=== PATIENT | female | born 1955 | race Caucasian/White ===

== ENCOUNTER → 2020-08-02 10:54 | Outpatient (CLI) | payer OTHER, SELFPAY ==
--- NOTE | ~2020-08-02 | XR_ITS ---
EXAMINATION: XR hip LT min 2V DATE: 08/02/2020 11:27 INDICATION: Left hip pain. TECHNIQUE: 2 views of left hip were obtained. COMPARISON: Lumbar spine radiographs 08/02/2020 FINDINGS: Bone alignment is normal. No fracture. There is diffuse sclerosis of left innominate bone w ith cortical thickening. Left hip joint space is normal. IMPRESSION: 1. Diffuse sclerosis and cortical thickening of left innominate bone, likely Paget disease. Reviewed, dictated and finalized at location A. ES ATTENDANT IMPRESSION: 1. Diffuse sclerosis and cortical thickening of left innominate bone, likely Pa get disease.
--- NOTE | ~2020-08-02 | XR_ITS ---
XR lumbar spine 2-3V DATE: 08/02/2020 11:27 INDICATION: Back pain TECHNIQUE: AP, lateral, coned lateral lumbosacral views COMPARISON: None FINDINGS: There is diffuse osteopenia. There are 6 functional lumbar vertebrae, including probable S1 transitional vertebra. Mild anterior wedge compression fracture deformity of T12. No other fracture is evident. No bone destruction is evident. The lumbar pedicles are intact. There is moderate degenerative disc disease at L5-S1 and mild degenerative disease at the remaining l umbar interspaces. The sacroiliac joints are intact. There is asymmetric cortical thickening and patchy increased density of the left ilium which suggests Paget's disease. Pelvis radiograph is recommended for more definitive evaluation. IMPRESSION: Diffuse osteopenia Transitional first sacral vertebra Moderate degenerative disc disease at L5-S1, mild degenerative change at the remaining lumbar intersp aces Mild likely chronic anterior wedge compression fracture of T12 Suspected Paget's disease of left ilium; pelvis radiograph is recommended Reviewed, dictated and finalized at location A. E LIAISON IMPRESSION: Diffuse osteopenia Transitional first sacral vertebra Moderate degenerative disc disease at L5-S1, mild degenerative change at the re maining lumbar interspaces Mild likely chronic anterior wedge compression fracture of T12 Suspected Paget's disease of left ilium; pelvis radiograph is recommended
== END ==
PROVIDERS: Visit Provider Physician Assistant
DX: M54.9 Dorsalgia, unspecified (principal); M25.559 Pain in unspecified hip; M89.9 Disorder of bone, unspecified; M85.88 Other specified disorders of bone density and structure, other site; Q76.49 Other congenital malformations of spine, not associated with scoliosis; M51.37 Other intervertebral disc degeneration, lumbosacral region; M48.54XA Collapsed vertebra, not elsewhere classified, thoracic region, initial encounter for fracture
CPT/HCPCS: 72100; 73502

== ENCOUNTER → 2020-09-12 15:56 | Outpatient (CLI) | payer OTHER, SELFPAY ==
--- NOTE | ~2020-09-12 | XR_ITS ---
EXAMINATION: XR pelvis 1-2V INDICATION: Abnormal findings on diagnostic imaging TECHNIQUE: AP view the pelvis is obtained. COMPARISON: 08/02/2020 FINDINGS: Again noted is diffuse sclerosis and cortical thickening of the left hemipelvis without sig nificant change. Bone alignment is normal. There is no fracture. Phleboliths are noted in the pelvis. IMPRESSION: 1. Findings in the left pelvis suggestive of Paget's disease. Reviewed, dictated and finalized at location A.
== END ==
PROVIDERS: PCP Family Medicine; Visit Provider Physician Assistant
DX: R93.7 Abnormal findings on diagnostic imaging of other parts of musculoskeletal system (principal)
CPT/HCPCS: 72170

== ENCOUNTER 2020-09-20 14:56 | Outpatient (CLI) | payer OTHER, SELFPAY ==
--- NOTE | ~2020-09-20 | DEXA_ITS ---
Bone Density Report Name: Lula Avila Age: 64 Sex: Female Ethnicity: White Date of : 1955 Indication: osteopenia; parental hip fracture; height loss; prior fracture; hysterectomy; Referring Provider: Kristofer Colon Study: Bone densitometry was performed. Exam Date: September 20, 2020 Accession number: [id number] Bone Density: Region BMD T-score Z-score Classification AP Spine (L1-L4) 0.930 -1.1 0.8 Osteopenia Femoral Neck (Left) 0.672 -1.6 0.0 Osteopenia Total Hip (Left) 0.941 0.0 1.3 Normal Total Hip Bilateral Avg 0.938 -0.1 1.3 Normal Femoral Neck (Right) 0.687 -1.5 0.1 Osteopenia Total Hip (Right) 0.934 -0.1 1.3 Normal World Health Organization criteria for BMD impression classify patients as: Normal (T-score at or above -1.0), Osteopenia (T-score between -1.0 and -2.5), or Osteoporosis (T-score at or below -2.5). 10-year Fracture Risk(1): Major Osteoporotic Fracture 24% Hip Fracture 2.2% Reported Risk Factors: [place] (), Neck BMD=0.672, BMI=41.9, previous fracture, parental fracture (1) FRAX(R) Version 3.08. Fracture probability calculated for an untreated patient. Fracture probability may be lower if the patient has received treatment. Previous Exams: Region Exam Age BMD T-score BMD Change BMD Change Date g/cm2 vs Baseline vs Previous AP Spine(L1-L4) 09/20/2020 64 0.930 -1.1 0.007(0.7%)# 0.007(0.7%)# 12/19/2005 50 0.924 -1.1 Total Hip(Left) 09/20/2020 64 0.941 0.0 -0.014(-1.5%)# -0.014(-1.5%)# 12/19/2005 50 0.955 0.1 Total Hip(Right) 09/20/2020 64 0.934 -0.1 -0.097(-9.4%)# -0.097(-9.4%)# 12/19/2005 50 1.031 0.7 *Denotes significance at 95% confidence level, LSC for AP Spine = 0.022 g/cm2, LSC for Total Hip = 0.027 g/cm2 Clinical Information Provided by Patient: Has had a low trauma fracture Parent has had a hip fracture Has used the following medications: Vitamin D, Calcium Has the following medical conditions: Hysterectomy Patient maximum height was 61.5 Drinks caffeinated beverages Onset of menses at age 12 Number of children 3 Impression: The patient has low bone mass, based on the Left Femoral Neck T-score. The patient has an estimated ten-year risk of hip fracture of 2.2% and an estimated ten-year risk of major fracture of 24%, based on the WHO FRAX algorithm. The patient has risk factors, including: parental hip fracture, previous fracture. No significant bone loss was observed
--- NOTE | ~2020-09-20 | MM_ITS ---
EXAMINATION: MM screening [facility] BI w kristine HISTORY: Screening TECHNIQUE: Craniocaudal and mediolateral oblique 3-D tomosynthesis images were obtained and synthetic 2-D images were generated. CAD analysis was submitted and interpreted. COMPARISON: Comparison to multiple prior studies sequentially, with oldest reviewed study dated 12/2010. BREAST PARENCHYMAL COMPOSITION: There are scattered areas of fibroglandular density. FINDINGS: There is no evidence of suspicious mass, calcification, or architectural distortion to sugg est malignancy in either breast. There has been no suspicious interval change. IMPRESSION: 1. No mammographic evidence of malignancy. 2. Recommend routine screening mammography in one year. BI-RADS Category 1: Negative Reviewed, dictated and finalized at location A.
== END 2020-09-20 14:57 | disposition home or self-care (01) ==
LOC: ANHIMG 14:58
PROVIDERS: PCP Family Medicine; Visit Provider Physician Assistant
DX: Z12.31 Encounter for screening mammogram for malignant neoplasm of breast (principal); Z78.0 Asymptomatic menopausal state; Z85.89 Personal history of malignant neoplasm of other organs and systems
CPT/HCPCS: 77063; 77067; 77080

== ENCOUNTER 2020-12-26 15:00 | Outpatient (RCR) | payer OTHER, SELFPAY ==
[2020-12-26 15:02] VITALS: BMI 41.7
[2020-12-26 15:08] VITALS: BMI 41.7
== END 2021-03-10 11:48 | disposition home or self-care (01) ==
LOC: ANHDMC 15:00
PROVIDERS: PCP Family Medicine; Visit Provider Physician Assistant
DX: E11.9 Type 2 diabetes mellitus without complications (principal); E66.01 Morbid (severe) obesity due to excess calories; Z71.89 Other specified counseling; Z71.3 Dietary counseling and surveillance
CPT/HCPCS: 97802; G0108

== ENCOUNTER 2023-02-18 15:30 | Outpatient (RCR) | payer OTHER, SELFPAY ==
--- NOTE | 2023-01-22 17:24 | OPREHPOC ---
Outpatient Therapy Plan of Care This is a Multidisciplinary Plan of Care that may contain components documented by all disciplines (PT, OT, and ST.) PT Problem 1 PT Problem #1 Knowledge Deficit PT Goal 1 Goal Pt to be IND with issued HEP Target Visit 8 PT Goal 1 Goal Pt to report pain no greater than 3/10 in the last week Target Visit 8 PT Goal 2 Goal Pt to report 75% improvement in overall symptoms. Target Visit 8 PT Problem 3 PT Problem #3 Impaired Sensation PT Goal 1 Goal Pt to report a 50% decrease in facial numbness Target Visit 8 PT Goal 2 Goal Pt to decline radiating symptoms down her LEs in the last week Target Visit 8 PT Problem 4 PT Problem #4 Impaired Functional Mobil PT Goal 1 Goal Pt to demonstrate a functional lift and carry with 10lb box Target Visit 8
--- NOTE | 2023-01-22 17:24 | PTOPEVAL1 ---
Assessment and note entered by Rex Kumar, PT, DPT Evaluation Information Assessment Status Evaluation Diagnosis low back pain Onset chronic Subjective Information Pt reports recurrent face and L hand numbness that is currently her biggest complaint. Pt reports a long history of low back pain that comes and goes. She reports current pain down the L thigh, and in the R side of her low back. Pt reports pain while standing long enough to cook a meal but her back pain hurts afterwards. Reported Pain Level Pain Score 3: Self Report Assessment PT Clinical Summary Lula presents to therapy today for her initial evaluation with a diagnosis of back pain. Today she demonstrates a mild decrease in radha hip strength, poor posture including a forward head and increased anterior pelvic tilt, and decreased core strength. In supine she also demonstrate BLE that are asymmetric in their alignment. Skilled therapy services are indicated to manage pain, improve alignment and postural awareness, and to improve functional mobility. Plan of Care Interventions Electrical Stimulation,Gait Training,Hot Pack/Cold Pack,Manual Therapy,Neuro Re-education,Patient/ Caregiver Educati,Therapeutic Activities, Therapeutic Exercise PT Services Indicated Yes Treatment Frequency and 1x/wk for 8 visits Duration These treatments will address the objective and functional deficits as defined above. The patient will be advanced safely and appropriately in order for the patient to progress towards his/her prior level of function. Additional exercises will be introduced and as well as a comprehensive home exercise program upon discharge, if needed, ?to ensure carryover of functional gains achieved in the clinic. This treatment plan has been reviewed and agreement upon by the patient.
--- NOTE | 2023-02-18 16:19 | PTOPDC ---
Assessment and note entered by Rex Kumar, PT, DPT Evaluation Information Assessment Status Discharge Diagnosis low back pain Onset chronic Subjective Information Pt states her back is doing good with only 1-2 times of pain in the last month. She has been gnosticist with her exercises and took a 15 min walk yesterday with an increase in lateral hip pain. Pt reports 90% improvement in her low back pain. Discussed with patient the signs of symptoms of trigeminal neuralgia and she thinks this is what is causing her facial numbness. Reported Pain Level Pain Score 0: Self Report Assessment PT Clinical Summary Lula presents to therapy today for her progress report following 4 visits of skilled therapy to treat her diagnosis of back pain. Today she demonstrates improved lumbar and hip ROM without an increase in pain, she demonstrates improved hip strength and improved movement mechanics. She has met or progressed well towards all of her therapy goals and no longer requires skilled services. She will be discharged at this time. Plan of Care PT Services Indicated No
== END 2023-02-19 09:10 | disposition home or self-care (01) ==
LOC: ANHGOSHPT 15:30
PROVIDERS: PCP Family Medicine; Visit Provider Nurse Practitioner
DX: M54.9 Dorsalgia, unspecified (principal)
CPT/HCPCS: 97110; 97112; 97140; 97161; 97530

== ENCOUNTER → 2023-03-13 10:24 | Outpatient (CLI) | payer OTHER, SELFPAY ==
--- NOTE | ~2023-03-13 | MR_ITS ---
EXAMINATION: MR cervical spine wo con DATE: 03/13/2023 11:46 INDICATION: Left-sided neck pain. Neurogenic pain. Cervical degenerative disc disease. TECHNIQUE: Magnetic resonance imaging (MRI) of the cervical spine was performed without intravenous c ontrast. Sequences included sagittal T2-weighted FSE, sagittal T2-weighted FS FSE, sagittal T1-weight ed FSE, axial MERGE, and axial T2-weighted FSE. COMPARISON: Cervical spine MRI 02/24/2019 FINDINGS: There is 4 degrees dextrocurvature of cervical spine. There is hypolordosis of cervical spi ne. Vertebral body heights are normal. There is a hemangioma in T1 vertebral body. Intervertebral dis c heights are normal. The spinal cord signal intensity is normal. The following disc levels are speci fically discussed: C2-C3: The disc does not extend beyond the endplate margin. There is no uncovertebral joint osteoarth ritis. There is mild bilateral facet joint osteoarthritis. There is no neural foraminal stenosis. The re is no central canal stenosis. C3-C4: The disc does not extend beyond the endplate margin. There is mild right and moderate left unc overtebral joint osteoarthritis. There is mild right and moderate left facet joint osteoarthritis. Th ere is mild right and moderate left neural foraminal stenosis. There is no central canal stenosis. C4-C5: There is a central protrusion. There is no uncovertebral joint osteoarthritis. There is mild r ight and moderate left facet joint osteoarthritis. There is mild left neural foraminal stenosis. Ther e is mild central canal stenosis. C5-C6: There is a central protrusion. There is mild bilateral uncovertebral joint osteoarthritis. The re is mild bilateral facet joint osteoarthritis. There is no neural foraminal stenosis. There is mild central canal stenosis. C6-C7: The disc does not extend beyond the endplate margin. There is mild left uncovertebral joint os teoarthritis. There is no facet joint osteoarthritis. There is mild left neural foraminal stenosis. T here is no central canal stenosis. C7-T1: The disc does not extend beyond the endplate margin. There is no uncovertebral joint osteoarth ritis. There is mild right and moderate left facet joint osteoarthritis. There is mild left neural fo raminal stenosis. There is no central canal stenosis. IMPRESSION: 1. Mild cervical spondylosis, stable from 02/24/2019. Reviewed, dictated and finalized at location A.
--- NOTE | ~2023-03-13 | MR_ITS ---
EXAMINATION: MR brain/brain stem wo con DATE: 03/13/2023 12:10 INDICATION: Left face and neck pain. Neuropathic pain. Trigeminal neuralgia. TECHNIQUE: Magnetic resonance imaging (MRI) of the brain and brainstem was performed without intraven ous contrast. COMPARISON: Brain MRI 10/16/2014 FINDINGS: There are scattered areas of nonspecific increased T2-weighted signal intensity in the cere bral white matter. There is no intracranial hemorrhage, acute infarction, or abnormal intracranial ma ss lesion. The ventricles are normal in size. There is no mass effect on the trigeminal nerves. The o rbits are normal. The paranasal sinuses are clear. The mastoid air cells are normal. IMPRESSION: 1. Stable mild nonspecific cerebral white matter disease, which likely represents chronic small vesse l ischemic disease. 2. Normal trigeminal nerves. No vascular loop compression. Reviewed, dictated and finalized at location A. IMPRESSION: 1. Stable mild nonspecific cerebral white matter disease, which likely represen ts chronic small vessel ischemic disease. 2. Normal trigeminal nerves. No vascular loop compression.
== END ==
PROVIDERS: PCP Family Medicine; Visit Provider Family Medicine
DX: M50.30 Other cervical disc degeneration, unspecified cervical region (principal); G50.0 Trigeminal neuralgia; M43.02 Spondylolysis, cervical region; R90.82 White matter disease, unspecified
CPT/HCPCS: 70551; 72141

== ENCOUNTER 2023-05-21 14:01 | Outpatient (CLI) | payer OTHER, SELFPAY ==
--- NOTE | ~2023-05-21 | MM_ITS ---
EXAMINATION: MM screening [facility] BI w kristine HISTORY: Screening TECHNIQUE: Craniocaudal and mediolateral oblique 3-D tomosynthesis images were obtained and synthetic 2-D images were generated. CAD analysis was submitted and interpreted. COMPARISON: Comparison to multiple prior studies sequentially, with oldest reviewed study dated 05/07. BREAST PARENCHYMAL COMPOSITION: The breasts are almost entirely fatty. FINDINGS: There is no evidence of suspicious mass, calcification, or architectural distortion to sugg est malignancy in either breast. There has been no suspicious interval change. IMPRESSION: 1. No mammographic evidence of malignancy. 2. Recommend routine screening mammography in one year. BI-RADS Category 1: Negative Reviewed, dictated and finalized at location A. TTER OPERATOR
== END 2023-05-21 14:02 | disposition home or self-care (01) ==
LOC: ANHIMG 14:03
PROVIDERS: PCP Family Medicine; Visit Provider Family Medicine
DX: Z12.31 Encounter for screening mammogram for malignant neoplasm of breast (principal)
CPT/HCPCS: 77063; 77067

== ENCOUNTER 2023-12-16 07:41 | Outpatient (CLI) | payer OTHER, SELFPAY ==
--- NOTE | ~2023-12-16 | MR_ITS ---
EXAMINATION: MR brain/brain stem wo con DATE: 12/16/2023 08:25 INDICATION: Left-sided trigeminal neuralgia. Left face and neck and leg numbness. TECHNIQUE: Magnetic resonance imaging (MRI) of the brain and brainstem was performed without intraven ous contrast. COMPARISON: Brain MRI 03/13/2023 FINDINGS: There are scattered areas of nonspecific increased T2-weighted signal intensity in the cere bral white matter, which is within normal limits for the patient's age. There is no intracranial hemo rrhage, acute infarction, or abnormal intracranial mass lesion. The ventricles are normal in size. Th e orbits are normal. There is mild mucosal thickening in the paranasal sinuses. The mastoid air cells are normal. The trigeminal nerves are normal. IMPRESSION: 1. Normal trigeminal nerves. No vascular loop compression. Reviewed, dictated and finalized at location E.
== END 2023-12-16 07:42 ==
LOC: MICIMG 07:42
PROVIDERS: PCP Family Medicine; Visit Provider Family Medicine
DX: G50.0 Trigeminal neuralgia (principal); R20.0 Anesthesia of skin
CPT/HCPCS: 70551

== ENCOUNTER 2024-11-06 09:41 | Outpatient (CLI) | payer OTHER, SELFPAY ==
--- NOTE | ~2024-11-06 | MM_ITS ---
BILATERAL DIGITAL SCREENING MAMMOGRAM WITH DIVYA INDICATION: Asymptomatic, referred for screening mammogram COMPARISON: 05/21/2023 through 07/30/2007 TECHNIQUE: Digital breast tomosynthesis craniocaudal and mediolateral oblique views of Both breasts w ere obtained. FINDINGS: The breasts are almost entirely fatty. No focal dominant mass, architectural distortion, or suspicious microcalcifications are identified. There are no features to suggest malignancy. IMPRESSION: No evidence of malignancy in the breast. Recommend continued screening mammography BI-RADS 1, NEGATIVE Reviewed, dictated and finalized at location B.
--- OUTSIDE RECORDS SUMMARY | 2024-11-06 10:18 | XMS_ITS | Encounter Summary ---
Author Organization [facility] Healthcare Address [address] [place] [address] Care Team Providers Care Milk Pasteurizer Name Role Phone Ron Temple MD Primary Care Provider [phone] Encounter Details Date Type Department Care Team (Late st Contact Info) Description 03/16/2024 Telephone Family Physicians [facility] [place] [address] Ron Temple MD [address] [place] [address] Social History Tobacco Use Types Packs/Day Years Used Date Smoking Tobacco: Never Cigarettes Passive Smoke Exposure: Never Smokeless Tobacco: Never Alcohol Use Standard Drinks/Week Comments Yes 4 (1 standard drink = 0.6 oz pur e alcohol) AUDIT-C Answer Date Recorded Q1: How often do you have a drink containing alc ohol? 2-3 times a week 07/01/2023 Q2: How many drinks containi ng alcohol do you have on a typical day when you are drinking? 1 or 2 07/01/2023 Q3: How often do you have si x or more drinks on one occasion? Never 07/01/2023 PHQ-2 Answer Date Recorded PHQ-2 Total Score (If total score is 3 or more points, staff should administer the PHQ-9) 0 02/04/2024 Exercise Vital Sign Answer Date Recorde d On average, how many days pe r week do you engage in moderate to strenuous exercise (like a brisk walk)? 0 days 02/15/2023 On average, how many minutes do you engage in exercise at this level? 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
--- OUTSIDE RECORDS SUMMARY | 2024-11-06 10:18 | XMS_ITS | Encounter Summary ---
Author Organization [facility] Healthcare Address [address] [place] [address] Care Team Providers Care Combination Technician Name Role Phone Ron Temple MD Primary Care Provider [phone] Reason for Visit * Reason Onset Date Comments Medical Question/Miscellaneous 05/29/2024 Encounter Details Date Type Department Care Team (Late st Contact Info) Description 05/29/2024 Telephone Family Physicians [facility] [address] [place] [address] Ron Temple MD [address] [place] [address] Medical Question/Miscellaneous Social History Tobacco Use Types Packs/Day Years [...] on file Legal Sex Female 2:19 AM GIFT CONSULTANT Gender Identity Female 02/14/2023 4:19 PM CDT Sexual Orientation Not on file documented as of this encounter Miscellaneous Notes * Telephone Encounter - Nusrat Berger MA - 05/29/2024 2:07 PM CST Pt aware CONSULTANT * Telephone Encounter - Nusrat Berger MA - 05/29/2024 10:[address] Temple, would you like to increase dosage to 0.5 mg? Pt currently on 0.25 mg. Script pended, please sign if agreeable. CONSULTANT * Telephone Encounter - Amanda Degroot - 05/29/2024 9:50 AM CST Medication Question/Clarification Medication Name(s): semaglutide What is the question or clarification needed? Patient states pharmacy told her to ask provider if dosage will need to be increased. She has taken 5 doses and believes she has 1 more left. She is alsoasking if you can send to pharmacy because she is due for a refill. If needed, Pharmacy(s) medication(s) should be sent to: on file Additional Comments: Patient also asked how do you know when the pen is empty. Please advise. Does message need to be routed? Yes-Action Needed CONSULTANT documented in this encounter Plan of Treatment Not on file documented as of this encounter Visit Diagnoses Not on filedocumented in this encounter Care Teams Combination Technician Relationship Specialty Start Date End Date Ron Temple MD [address] [place] [address] PCP - General Family Medicine 02/04/24 documented as of this encounter
--- OUTSIDE RECORDS SUMMARY | 2024-11-06 10:18 | XMS_ITS | Encounter Summary ---
Author Organization [facility] Healthcare Address [address] [place] [address] Care Team Providers Care Air Pollution Inspector Name Role Phone Ron Temple MD Primary Care Provider [phone] Reason for Visit * Reason Onset Date Comments Symptom Based Call 10/12/2024 Encounter Details Date Type Department Care Team (Late st Contact Info) Description 10/12/2024 Telephone Family Physicians [address] [address] Ron Temple MD [address] [place] [address] Symptom Based Call Social History Tobacco Use Types Packs/Day Years [...] points, staff should administer the PHQ-9) 0 08/03/2024 Exercise Vital Sign Answer Date Recorde d [...] on file Legal 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 Temple is it ok for her to increase to 3 times a day? Thanks * Telephone Encounter - Amanda Degroot - 10/12/2024 9:24 AM CDT Symptom Based Call Chief Complaint(s): Trigeminal neuralgia syndrome Duration: for at least 10 years What type of symptom(s) is the patient experiencing? Non-Emergent. Is this a new or reoccurring symptom(s)? Reoccurring What have you tried to help your symptom(s)? Pregablin 2x aday Why was appointment not scheduled? Patient seeking care without an appointment; appointment was offered by [facility]. Additional Comments: Patient states provider told her to call if increasing Pregablin to 150mg 2x aday was not working he would change it to 3 times a day. Patient is wanting to take medication 3x aday. Please advise. Does message need to be routed? Yes-Action Needed documented in this encounter Plan of Treatment Not on file documented as of this encounter Visit Diagnoses Not on filedocumented in this encounter Care Teams Air Pollution Inspector Relationship Specialty Start Date End Date Ron Temple MD [address] [place] [address] PCP - General Family Medicine 02/04/24 documented as of this encounter
--- OUTSIDE RECORDS SUMMARY | 2024-11-06 10:18 | XMS_ITS | Clinical Summary ---
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 5 Active pregabalin (LYRICA) 150 MG Capsule 5 Active aspirin EC 81 MG Tablet Delayed Response Take 81 mg by mouth daily. Active Ascorbic Acid (VITAMIN C PO) Take 500 mg by mouth. Active CALCIUM CARBONATE-VITAM IN D PO Take 500 mg by mouth. Active Cholecalciferol (VITAMIN D3 PO) Take by mouth. Active Vitamin B-6 (Pyridoxine HCl) 100 MG Tablet Take 100 mg by mouth daily. Active zinc gluconate 50 MG Tablet Take 50 mg by mouth daily. Active nitroGLYCERIN (NITRODUR) 0.4 MG/HR PATCH 24 HR 1 Patch by Transdermal route daily. Active Social History Tobacco Use Types Packs/Day Years Used Date Smoking Tobacco: Never Smokeless Tobacco: Never Tobacco Cessation:Counseling Given: Not Answered Alcohol Use Standard Drinks/Week Comments Yes 0 (1 standard drink = 0.6 oz pur e alcohol) 2-3 times a week Sexually Active Control Partners Comments Not Currently Comments Unknown Sex and Gender Information Value Date Recorded Sex Assigned at Not on file Legal Sex Female 9:19 PM CDT Gender Identity Not on file Sexual Orientation Not on file Plan of Treatment Upcoming Encounters Date Type Department Care Team ([facility] st Contact Info) Description 11/27/2024 1:45 PM CDT Office Visit [facility] [address] [place] [address] Dio Hanson MD [address] [place] [address] Health Maintenance Due Date Last Done Comments DEXA Bone Density 1955 Hepatitis C Virus (HCV) Screening 1955 Mammogram 1955 TdaP Immunization 1955 Colonoscopy 1998 Colorectal Cancer Screening 1998 Cologuard 11/16/2003 Immunochemical Fecal Occult Blood 11/16/2003 Zoster Immunization (1 of 2) 11/16/2003 SARS-COV-2 Immunization ( season) 2024 03/05/2024, 02/26/2022, 12/13/2021, Additional history exists Respiratory Syncytial Virus (RSV) Immunization (Adult) (1 - 1-dose 75+ series) 2028 Pneumococcal Immunization (50+ years) Completed 03/31/2023 Influenza Immunization Completed , 03/25/2023, 03/26/2022, Additional history exists Hepatitis B Immunization Aged Out No longer eligible based on patient's age to complete this topic Human Papillomavirus (HPV) Immunization Aged Out No longer eligible based on patient's age to complete this topic Meningococcal Immunization (ACWY) Aged Out No longer eligible based on patient's age to complete this topic Rotavirus Immunization Aged Out No lo nger eligible based on patient's age to complete this topic Insurance [employer] Care Teams 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
--- OUTSIDE RECORDS SUMMARY | 2024-11-06 10:18 | XMS_ITS | Referral Summary ---
Author Organization [facility] [address] Address [address] [place] [address] Care Team Providers Care Cover Machine Operator Name Role Phone Ron Temple MD Primary Care Provider [phone] Encounters Date Type Department Care Team Description 10/12/2024 Orders Only [facility] [address] [phone] Ron Temple MD 10/12/2024 Telephone [facility] [address] [phone] Ron Temple MD Symptom Based Call 10/12/2024 Telephone [facility] [address] [phone] Ron Temple MD Medical Question/Miscellaneous 10/12/2024 Telephone [facility] [address] [phone] Ron Temple MD Recommendation Request 09/20/2024 Orders Only [facility] [address] [phone] Ron Temple MD 09/14/2024 Telephone [facility] [address] [phone] Ron Temple MD Prior Auth (ANTONI) 09/13/2024 3:00 PM CDT Office Visit [facility] [address] [phone] Ron Temple MD Encounter for screening mammogram for malignant neoplasm of breast (Primary Dx); Mixed diabetic hyperlipidemia associated with type 2 diabetes mellitus (CMS/HCC) (HCC); S/P coronary artery stent placement; Trigeminal neuralgia syndrome; Coronary artery disease involving sioux coronary artery of sioux heart without angina pectoris; Controlled type 2 diabetes mellitus without complication, without long-term current use of insulin (HCC); Morbid obesity with BMI of 40.0-44.9, adult (HCC); BMI 40.0-44.9, adult (HCC); Statin intolerance; Hypertension associated with diabetes ([facility]) 09/13/2024 Nurse Triage [facility] [address] [phone] Ron Temple MD 08/30/2024 Telephone [facility] [address] [phone] Ron Temple MD Medication Request 08/28/2024 11:45 AM CDT Lab [address] [phone] 08/15/2024 Telephone [facility] [address] [phone] Ron Temple MD Referral Request 08/08/2024 Results Follow-Up [facility] [address] [phone] Cathryn Velasquez NP Rheumatoid factor, Albumin Creatinine Ratio, Urine, CBC with auto differential, Additional followed-up results: 5 from Last 3 Months Allergies Active Allergy Reactions Criticality Noted Date Comments Adhesive Tape-Silicones Rash Medium Empagliflozin Other (See comments) Low 03/16/2024 Patient states it felt like she had spiders crawling up her legs. Penicillins Hives Medium Xxioyff-Bzv-Yjx Reductase Inhibitors Muscle pain Medium 01/22/2017 Medications magnesium oxide (MAG-OX) 415 mg (250 mg elemental) tablet take one by mouth once daily 0 0 7 Active calcium carbonate-vitam in D3 (CALCIUM 500 + D, D3,) 500 mg(1,250mg) -125 unit per tablet take one by mouth once daily 0 0 7 Active aspirin (ASPIRIN LOW DOSE) 81 mg tablet take 1 tablet by oral route every day 0 0 7 Active pyridoxine (vitamin B-6) 100 mg tablet take one by mouth once daily 0 0 7 Active acetaminophen (TYLENOL) 500 mg tablet Take 2 tablets (1,000 mg total) by mouth every 6 (six) hours as needed for pain Active nitroglycerin (NITROSTAT) 0.4 mg SL tabletIndicatio ns:Coronary artery disease involving sioux coronary artery of sioux heart without angina pectoris Place 1 tablet (0.4 mg total) under the tongue every 5 (five) minutes as needed for chest pain May repeat dose q 5 min, up to 3 doses total 25 tablet 3 9 Active zinc gluconate 50 mg tablet Take 1 tablet (50 mg total) by mouth daily Active ascorbic acid (VITAMIN C) 500 mg tablet,chewable Acti ve cholecalciferol , vitamin D3, (VITAMIN D3 ORAL) Take by mouth Active vitamin b complex tablet Take 1 tablet by mouth daily Active lisinopril-hydr oCHLOROthiazide (ZESTORETIC) 20-25 mg per tablet Take 1 tablet by mouth daily 100 tablet 1 5 Active metoprolol XL (TOPROL-XL) 25 mg extended release tablet Take 1 tablet by mouth once daily 90 tablet 1 5 Active sAXagliptin (ONGLYZA) 2.5 mg tabletIndicatio ns:type 2 diabetes mellitus Take 1 tablet (2.5 mg total) by mouth daily 90 tablet 2 5 Active pregabalin (LYRICA) 150 mg capsule Take 1 capsule (150 mg total) by mouth 3 (three) times a day 90 capsule 1 5 Active pregabalin (LYRICA) 150 mg capsule Take 1 capsule (150 mg total) by mouth 2 (two) times a day 60 capsule 1 5 10/13/19 25 Discontinu ed(Reorder ) Active Problems Problem Noted Date Diagnosed Date BMI 40.0-44.9, adult 09/14/2024 Assessment & Plan (09/14/2024 9:39 AM CDT): As above. Encounter for screening mamm ogram for malignant neoplasm of breast 09/14/2024 Assessment & Plan (09/14/2024 9:39 AM CDT): [facility] rudy adame pneding. Arthralgia of both hands 08/03/2024 Assessment & Plan (08/03/2024 4:29 PM CAR SHAKEOUT OPERATOR): RA ordered. Will monitor. Differentials include RA, side-effect of Ozempic, or arthritis. Gastroesophageal reflux disease without esophagi tis 08/03/2024 Assessment & Plan (08/03/2024 4:32 PM CAR SHAKEOUT OPERATOR): Started taking Omeprazole with relief. Stable and controlled. Will continue to monitor. Chronic right-sided low back pain with right-manish ed sciatica 03/16/2024 Assessment & Plan (03/16/2024 3:10 PM CDT): Recommend completing physical therapy exercises that were provided at your last sessions. Offered referral to physical therapy but she declines today. Offered muscle relaxant to take for exacerbations and she is agreeable. Reviewed the scheduling and side effects. Will monitor response. Controlled type 2 diabetes salvador medrano without complication, without long-term current use of insulin 03/16/2024 Assessment & Plan (09/14/2024 9:39 AM CDT): Secondary preveintoin. See discusison as above. Reiweed and will follow response. Assessment & Plan (08/03/2024 4:28 PM CAR SHAKEOUT OPERATOR): Stable and well controlled. Will continue on Ozempic and monitoring. A1C and CMP ordered. Assessment & Plan (03/16/2024 3:11 PM CDT): She is going to start Ozempic but will wait until she returns from her cruise. Does not want to have adverse effects while away on vacation. I feel this is agreeable. Recommend continuing Januvia at this time. Can monitor blood glucose at home p.r.n.. Keep follow-up as scheduled. RTC sooner for any concerns. Red flags reviewed. She is in agreement with plan and states understanding. Altered mental status 03/07/2024 Back pain with left-sided sciatica 12/23/2023 SAPHO syndrome 10/04/2023 Trigeminal neuralgia syndrome 07/19/2023 Assessment & Plan (09/14/2024 9:38 AM CDT): Utpitate dosign to 150mg bid. Montiro respnose. Assessment & Plan (08/03/2024 4:30 PM CAR SHAKEOUT OPERATOR): Controlled with Gabapentin. Will continue medication and monitoring. Assessment & Plan (12/17/2023 12:06 PM CDT): sending for second opinion ( neurology) will repeat MRI, considering EMG study for cranial axis Increased pregabalin to 100 mg BID for now I did note possible similarities to an early case of herpes zoster, I advised Lula watch for skin changes in the next couple days, as this might be prodrome of such her daughter repeated implied I wasn't doing enough or moving fast enough. They didn't seem to appreciate the current specialist impression, and admitted the treatment was not seemingly curative Lula has been dealing with this before establishing here with me, and our testing thus far had not turned up any alternative I attempted to explain to her daughter that surgical management isn't yet warranted (she mentioned it several times). There was an air of disrespect from her daughter, who I surmise is a mechanical maintenance technician, and at times was insulting to me and staff (as recounted to me by staff after as Lula was being roomed, directed at myself). Left facial numbness 03/02/2023 Overview (03/02/2023): Chronic problem. Associated intermittent pain. No TMJ dysfunction Assessment & Plan (03/16/2024 3:10 PM CDT): Chronic. Currently taking Lyrica. Continue following with Neurology as directed. Assessment & Plan (03/02/2023 2:44 PM CDT): Present for 10 + years. H/O of trauma from baseball 30 years ago and prior episode of bells palsy. DDx- Trigeminal neuralgia, TMJ but cannot r/o intracranial pathology as a cause such as mass lesion or vascular compression and MS. - recommend MRI to r/o intracranial cause of symptoms - will wait for imagine result and refer to neurology - if trigeminal neuralgia will consider carbamazepine for treatment Encounter to establish care with new doctor 02/05 Assessment & Plan (02/20/2023 2:31 PM CDT): A(n) initial visit to establish care has been performed today. Lula Avila is not up to date on screening tests. She is in need of Diabetic eye exam, Diabetic foot exam, Breast cancer screening, Hepatitis C screening, Colon cancer screening, and Cholesterol screening- will order most of these at follow up given the amount of testing ordered today. She is not up to date on needed preventative vaccinations; She is in need of Tdap/Td, Influenza, Pneumonia (Prevnar-13 or Pneumovax-23), and Zoster. Some of these received at outside hospital; we area awaiting records. We discussed healthy lifestyle habits, educational material has been given. Medications reviewed, changes documented as per the medical record and discussed with patient along with risks vs benefits. Return in 2 weeks Class 3 severe obesity due t o excess calories without serious comorbidity with body mass index (BMI) of 40.0 to 44.9 in adult 01/02/2022 Assessment & Plan (08/03/2024 4:28 PM CAR SHAKEOUT OPERATOR): Encouraged heart healthy diet and lifestyle. Advised 150 min/week of aerobic exercise. Assessment & Plan (05/05/2023 1:10 PM CAR SHAKEOUT OPERATOR): BMI Follow-up includes: nutrition counseling and education provided. Murmur 09/02/2020 Mixed diabetic hyperlipidemi a associated with type 2 diabetes mellitus ([facility]) 02/27/2020 Assessment & Plan (09/14/2024 9:37 AM CDT): Will cotninue to follow response. Reivwed glycmeic controla dn target response. Assessment & Plan (08/03/2024 4:28 PM CAR SHAKEOUT OPERATOR): Lipid panel ordered. Will continue to monitor. Cannot tolerate statins. Statin myopathy 05/17/2018 Hypertension associated with diabetes 12/01/2017 Assessment & Plan (09/14/2024 9:39 AM CDT): Continues on lisionpril/hctz and metorppolol XL. Will follow respnose. Assessment & Plan (08/03/2024 4:27 PM CAR SHAKEOUT OPERATOR): Blood pressure stable and well controlled. Will continue on Lisinopril-HCTZ and metoprolol. Assessment & Plan (04/04/2023 12:10 PM CDT): See orders for this visit as documented in the electronic medical record. Issues reviewed with her: low cholesterol diet, weight control and daily exercise discussed, all medications, side effects and compliance discussed carefully, foot care discussed and Podiatry visits discussed, annual eye examinations at Ophthalmology discussed, glycohemoglobin and other lab monitoring discussed, and labs immediately prior to next visit. Continuing Toprol XL Morbid obesity with BMI of 40.0-44.9, adult 11/06 Assessment & Plan (09/14/2024 9:39 AM CDT): Encrouage 150min/week aerobic execise. Healthy food choices. S/P coronary artery stent placement 12/01/2017 Assessment & Plan (09/14/2024 9:38 AM CDT): Continues on coroanry artery disease secondary prevention. Statin intolerance 04/27/2017 Coronary artery disease invo lving sioux coronary artery of sioux heart without angina pectoris 01/22/2017 Assessment & Plan (09/14/2024 9:38 AM CDT): Secondary prevneiton. WIll continue to folow repsonse. Assessment & Plan (08/03/2024 4:33 PM CAR SHAKEOUT OPERATOR): Stable and continues to follow with cardiology. Nitroglycerin, Metoprolol, Lisinopril-HCTZ, and ASA. Will continue to monitor. Resolved Problems Problem Noted Date Diagnosed Date Resolved Date Dyslipidemia 12/01/2017 01/02/2022 Immunizations Immunization Administration Dates Next Due Influenza, Quadrivalent, Spl it, Preservative Free, Intramuscular 03/25/2023,03/26/2022,03/20/2021 Influenza, Trivalent, High D ose, Split, Preservative Free, Intramuscular 03/16/2024 Pfizer SARS-CoV-2 Monovalent Vaccination (12+ Yrs) PURPLE 08/08/2020,07/11/2020 Pfizer Sars-Cov-2 Bivalent V accination (12+ YRS) 02/26/2022 Pneumococcal Conjugate Pcv20 03/31/2023 Social History Tobacco Use Types Packs/Day Years Used Date Smoking Tobacco: Never Cigarettes Passive Smoke Exposure: Never Smokeless Tobacco: Never Tobacco Cessation:Counseling Given: Not Answered Alcohol Use Standard Drinks/Week Comments Yes 4 [...] on file Legal Sex Female 2:19 AM CAR SHAKEOUT OPERATOR Gender Identity Female 02/14/2023 4:19 PM CDT Sexual Orientation Not on file Last Filed Vital Signs Vital Sign Reading Time Taken Comments Blood Pressure 122/82 09/13/2024 2:55 PM CDT Pulse 66 09/13/2024 2:55 PM CDT Temperature 36.7 C (98 F) 09/13/2024 2:55 PM CDT Respiratory Rate 18 09/13/2024 2:55 PM CDT Oxygen Saturation 94% 09/13/2024 2:55 PM CDT room air Inhaled Oxygen Concentration - - Weight 99.3 kg (219 lb) 09/13/2024 2:55 PM CDT Height 154.9 cm (5' 0.98) 09/13/2024 2:55 PM CD T Body Mass Index 41.4 09/13/2024 2:55 PM CDT Plan of Treatment Not on file Procedures Procedure Name Priority Date/Time Associated Diagnosis Comments DIABETIC EYE EXAM Routine 09/15/2024 11:17 AM CDT SJOGRENS SYNDROME-B ANTIBODY Routine 08/28/2024 2:52 PM CDT SJOGRENS SYNDROME-A ANTIBODY Routine 08/28/2024 2:52 PM CDT ERYTHROCYTE SEDIMENTATION RATE Routine 08/28/2024 2:52 PM CDT G6PD QUALITATIVE WITH REFLEX TO QUANTITATIVE Routine 08/28/2024 2:52 PM CDT HEPATITIS C ANTIBODY Routine 08/28/2024 2:52 PM CDT HEPATITIS B SURFACE ANTIGEN Routine 08/28/2024 2:52 PM CDT CREATINE KINASE (CK), TOTAL Routine 08/28/2024 2:51 PM CDT CRP (ACUTE PHASE) Routine 08/28/2024 2:5 1 PM CDT CYCLIC CITRUL PEPTIDE ANTIBODY, IGG Routine 08/28/2024 2:51 PM CDT ARLETTE SCREEN W/REFLEX KOBY+DSDNA Routine 08/28/2024 2:50 PM CDT EGFR Routine 08/04/2024 10:13 AM CAR SHAKEOUT OPERATOR Controlled type 2 diabetes mellitus without complication, without long-term current use of insulin (HCC) HEMOGLOBIN A1C Routine 08/04/2024 10:13 AM CAR SHAKEOUT OPERATOR Controlled type 2 diabetes mellitus without complication, without long-term current use of insulin (HCC) LIPID PANEL Routine 08/04/2024 10:13 AM CAR SHAKEOUT OPERATOR Mixed diabetic hyperlipidemia associated with type 2 diabetes mellitus (CMS/HCC) (HCC) ALBUMIN CREATININE RATIO, URINE Routine 08/04/2024 10:13 AM CAR SHAKEOUT OPERATOR Controlled type 2 diabetes mellitus without complication, without long-term current use of insulin (HCC) DEXA TBS AXIAL SKELETON BONE DENSITY 1 OR MORE SITES Schedule Routine, Read Routine (OP Routine) 02/18/2024 11:06 AM CDT Osteopenia of neck of left femur SCREENING MAMMOGRAM BILATERAL W STEVE Schedule Routine, Read Routine (OP Routine) 05/21/2023 Screening mammogram for breast cancer STOOL DNA COLOGUARD Routine 04/06/2023 12:03 PM CDT Colon cancer screening from Last 3 Months or Most Recently Relevant to Health Maintenance Results * Diabetic Eye Exam (09/15/2024 11:17 AM CDT) us Historical Provider HEALTH MAINTENANCE Final Result * G6PD qualitative with reflex to quantitative (08/28/2024 2:52 PM CDT) G6PD Normal Normal Comment: Interp data: G6PD activity should be interpreted in the context of a patient's hematocrit. Hematocrit < 20% may lead to a falsely deficient result, while hematocrit > 50% may lead to a falsely normal result. Current interpretive data was last revised on 2019. Testing performed by: [facility], [address] [facility], [place]., [address] Blood 08/28/2024 2:52 PM CDT 08/28/2024 7:08 PM CDT us Zoraida Alvarez MD LAB BLOOD ORDERABLES Final Resul t Performing Organization Address [facility] [[email or web address]] de Phone Number [facility] [address] Department [employer] [place] [place] [address] * Hepatitis C antibody Blood (08/28/2024 2:52 PM CDT) Hep C Ab Nonreactive Nonreactive Comment: Interpretive Data Nonreactive: Antibodies to HCV not detected. Does NOT exclude the possibility of recent exposure to HCV. Equivocal: Equivocal for HCV antibodies. Supplemental molecular testing will be automatically performed to determine infection status in accordance with current CDC screening recommendations. Reactive: Positive for HCV antibodies. This may represent current or past HCV infection. Supplemental molecular testing will be automatically performed to determine current infection status in accordance with current CDC screening recommendations. Interpretive data was last revised on 2019. Blood 08/28/2024 2:52 PM CDT 08/28/2024 2:52 PM CDT Result Kiara Alvarez MD LAB MICROBIOLOGY - GENERAL ORDER NEGIN Final Result Performing Organization Address [facility] Co de Phone Number [facility] [address] Department [employer] [place] [address] * Hepatitis B Surface Antigen Blood (08/28/2024 2:52 PM CDT) HepBsAg Nonreactive Nonreactive Blood 08/28/2024 2:52 PM CDT 08/28/2024 2:52 PM CDT us Zoraida Alvarez MD LAB MICROBIOLOGY - GENERAL ORDER NEGIN Final Result Performing Organization Address [facility] [[email or web address]] de Phone Number [facility] [address] [facility] [employer] [place] [place] [address] * Sjogren's syndrome B ab (08/28/2024 2:52 PM CDT) Anti-KOBY, SS-B <0.2 <=0.9 Ab Index Comment: Interpretive Data Negative: < 1.0 Ab Index Positive: > or = 1.0 Ab Index Current interpretive data was last revised on 2016. Testing performed by: [facility], [address] [place] [address]., [id number] Blood 08/28/2024 2:52 PM CDT 08/28/2024 7:07 PM CDT us Zoraida Alvarez MD LAB BLOOD ORDERABLES Final Resul t Performing Organization Address [facility] Co de Phone Number [facility] [address] [place] [address] * Sjogren's syndrome A ab (08/28/2024 2:52 PM CDT) Pathologist [facility] Anti-KOBY, SS-A <0.2 <=0.9 Ab Index Comment: Interpretive Data Negative: < 1.0 Ab Index Positive: > or = 1.0 Ab Index Current interpretive data was last revised on 2016. Testing performed by: [facility], [address] [place] [address]., [id number] Blood 08/28/2024 2:52 PM CDT 08/28/2024 7:07 PM CDT us Zoraida Alvarez MD LAB BLOOD ORDERABLES Final Resul t [facility] [address] [facility] [employer] [place] [address] * Erythrocyte sedimentation rate (08/28/2024 2:52 PM CDT) Erythrocyte sedimentation rate 25 1 - 30 mm/hr Blood 08/28/2024 2:52 PM CDT 08/28/2024 2:52 PM CDT us Zoraida Alvarez MD LAB BLOOD ORDERABLES Final Resul t Performing Organization Address [facility] Co de Phone Number [facility] [address] Department of [employer] [place], [place] [id number] * Cyclic citrul peptide antibody, IgG (08/28/2024 2:51 PM CDT) Pathologist [facility] CCP Ab 2.2 <=2.9 units/mL Comment: Interpretive data Negative: <3 units/mL Positive: > or equal to 3 units/mL Current interpretive data was last revised on 2016. Testing performed by: [facility], [address] [place] [address]., [id number] Blood 08/28/2024 2:51 PM CDT 08/28/2024 7:07 PM CDT us Zoraida Alvarez MD LAB BLOOD ORDERABLES Final Resul t Performing Organization Address [facility] Co de Phone Number [facility] [address] Department [place] [employer] [place] [address] * CRP (acute phase) (08/28/2024 2:51 PM CDT) Pathologist [facility] CRP 5.0 <=10.0 mg/L Blood 08/28/2024 2:51 PM CDT 08/28/2024 2:51 PM CDT us Zoraida Alvarez MD LAB BLOOD ORDERABLES Final Resul t Performing Organization Address [facility] Co de Phone Number [facility] [address] Department [place] [address] * Creatine kinase (CK), total (08/28/2024 2:51 PM CDT) Pathologist [facility] CK 109 30 - 200 Units/L Blood 08/28/2024 2:51 PM CDT 08/28/2024 2:51 PM CDT us Zoraida Alvarez MD LAB BLOOD ORDERABLES Final Resul t Performing Organization Address [facility] Co de Phone Number [facility] [address] Department [employer] [place] [address] * ARLETTE screen w/rflx KOBY+dsDNA (08/28/2024 2:50 PM CDT) [facility] ARLETTE Negative Comment: Interpretive Data Normal range for ARLETTE Qualitative Antibody = Negative. 1. ARLETTE is performed using indirect immunofluorescence against HEp-2 cells 2. ARLETTE titers are performed on all positive qualitative results. 3. A significantly positive ARLETTE result is defined as a positive nuclear fluorescence at a titer of 1:80 or greater. 4. 15% of normal people above age 65 have significantly positive ARLETTE results. 5% or less of normal people age 65 or under have significantly positive ARLETTE results. Current interpretive data was last revised on 2020. Testing performed by: [facility], [address] [facility], [place]., [address] Blood 08/28/2024 2:50 PM CDT 08/28/2024 7:04 PM CDT us Zoraida Alvarez MD LAB BLOOD ORDERABLES Final Resul t Performing Organization Address [facility] Co de Phone Number [facility] [address] Department of [employer] [place] [address] * eGFR (08/04/2024 10:13 AM CAR SHAKEOUT OPERATOR) [facility] eGFR 61 >=60 mL/min/1. 73 m2 Comment: Interpretive Data Reference Interval Normal >/= 90 mL/min/1.73m2 Mildly decreased* 60 - 89 mL/min/1.73m2 Mildly to moderately decreased 45 - 59 mL/min/1.73m2 Moderately to severely decreased 30 - 44 mL/min/1.73m2 Severely decreased 15 - 29 mL/min/1.73m2 Kidney Failure < 15 mL/min/1.73m2 *Relative to young adult level Estimated glomerular filtration rate is determined by the 2020 CKD-EPI equation recommended by the National Kidney Foundation (A Unifying Approach to GFR Estimation: Recommendations of the NKF-ASK Task Force on Reassessing the Inclusion of Race in Diagnosing Kidney Disease, JASN 2020). The CKD-EPI equation should not be used for patients with unstable renal function and has not been validated in children and those over 70. Current interpretive data was last reviewed 2021. Testing performed by: [address] [address] Blood 08/04/2024 10:1 3 AM CAR SHAKEOUT OPERATOR 08/04/2024 12:59 PM CAR SHAKEOUT OPERATOR Cathryn Velasquez NP LAB BLOOD ORDERABLES Final Re sult [facility]ARD [facility] ([place]) [address] [facility] Department [place] [address] * Albumin Creatinine Ratio, Urine (08/04/2024 10:13 AM CAR SHAKEOUT OPERATOR) Albumin Ur 22.1 mg/L Comment: Interpretive Data No reference range established. Current interpretive data was last revised 2018. Testing performed by: [address] [address] Creatinine Ur 126.3 mg/dL LEONARD ROTHMAN ([place]) Comment: Interpretive Data No reference range established. Current interpretive data was last revised 2018. Testing performed by: [address] [address] Albumin Creatinine Ratio, Ur 17 1 - 29 mg/g LEONARD ROTHMAN ([place]) Comment:Testing performed by : [address] [address] Urine 08/04/2024 10:1 3 AM CAR SHAKEOUT OPERATOR 08/04/2024 12:39 PM CAR SHAKEOUT OPERATOR Cathryn Velasquez NP LAB URINE ORDERABLES Final Re sult Performing Organization Address City/[facility]/ZIP Co de Phone Number LEONARD ROTHMAN ([place]) 1 [facility] [place] [address] * (ABNORMAL) Hemoglobin A1c (08/04/2024 10:13 AM CAR SHAKEOUT OPERATOR) Hgb A1C 6.2(H) 4.0 - 5.6 % Comment:Testing performed by : [address] [address] Estimated Average Glucose 131 mg/dL LEOANRD ROTHMAN ([place]) Comment: The ADA recommends reporting an estimated Average Glucose (eAG) with all Hemoglobin A1c results using the equation derived from a study of 507 normal and diabetic adults. Minority populations were underrepresented and children were not included. (Diabetes Care 31:9749-7617, 2008). The eAG is not equivalent to a fasting glucose. Testing performed by: [address] [address] Blood 08/04/2024 10:1 3 AM CAR SHAKEOUT OPERATOR 08/04/2024 12:39 PM CAR SHAKEOUT OPERATOR Cathryn Velasquez REPORTER ANCHOR LAB BLOOD ORDERABLES Final Re sult Performing Organization Address City/[facility] Co de Phone Number LEONARD ROTHMAN ([place]) 1 [facility] [place] [address] * Lipid panel (08/04/2024 10:13 AM CAR SHAKEOUT OPERATOR) Cholesterol 122 30 - 199 mg/dL Comment: Interpretive Data Ages < or = 19 years Acceptable: <170 mg/dL Borderline high: 170-199 mg/dL High: >or= 200 mg/dL Ages > or = 20 years Desirable: <200 mg/dL Borderline high: 200-239 mg/dL High: >or= 240 mg/dL Literature References: 1. Expert Panel on Integrated Guidelines for Cardiovascular Health and Risk Reduction in Children and Adolescents. Pediatrics 2011;128:S213 2. NCEP Expert Panel. Circulation 2004;110:227 Current Interpretive Data was last revised on 2018. Testing performed by: [address] [place] [address] Triglycerides 46 <=149 mg/dL LEONARD ROTHMAN ([place]) Comment: Interpretive Data Ages < or = 9 years Acceptable: <75 mg/dL Borderline high: 75-99 mg/dL High: >or= 100 mg/dL Ages 10 to 20 years Acceptable: <90 mg/dL Borderline high: 90-129 mg/dL High: >or= 130 mg/dL Ages > or = 20 years Desirable: <150 mg/dL Borderline high: 150-199 mg/dL High: 200-499 mg/dL Very high: >or= 499 mg/dL Literature References: 1. Expert Panel on Integrated Guidelines for Cardiovascular Health and Risk Reduction in Children and Adolescents. Pediatrics 2011;128:S213 2. NCEP Expert Panel. Circulation 2004;110:227 Current Interpretive Data was last revised on 2018. Testing performed by: [facility], [address] [place] [address]., [address] HDL 63 >=40 mg/dL LEONARD Beltran ([place]) Comment: Interpretive Data Ages < or = 19 years Acceptable: >45 mg/dL Borderline low: 40-45 mg/dL Low: <40 mg/dL Ages > or = 20 years Desirable: >or= 60 mg/dL Low: <40 mg/dL Literature References: 1. Expert Panel on Integrated Guidelines for Cardiovascular Health and Risk Reduction in Children and Adolescents. Pediatrics 2011;128:S213 2. NCEP Expert Panel. Circulation 2004;110:227 Current Interpretive Data was last revised on 2018. Testing performed by: [facility], [address] [place] [address]., [address] LDL, calculated 48 <=129 mg/dL LEONARD ROTHMAN ([place]) Comment: Interpretive Data Ages < or = 19 years Acceptable: <110 mg/dL Borderline high: 110-129 mg/dL High: >or= 130 mg/dL Ages > or = 20 years Optimal: <100 mg/dL Near optimal: 100-129 mg/dL Borderline high: 130-159 mg/dL High: >160 mg/dL Calculated using the Ba LDL-C estimating equation. This equation was implemented on 2024. Prior to this date LDL-C was estimated using the Friedewald equation. Literature References: 1. Expert Panel on Integrated Guidelines for Cardiovascular Health and Risk Reduction in Children and Adolescents. Pediatrics 2011;128:S213 2. NCEP Expert Panel. Circulation 2004;110:227 3. Ba M et al. ALEX Cardiol. 2020 October 05;5(5):540-548. doi: 10.1001/[email or web address] Current Interpretive Data was last revised on 2024. Testing performed by: [facility], [address] [place] [address]., [address] Non-HDL Cholesterol 59 mg/dL LEONARD ROTHMAN ([place]) Comment: Interpretive Data Ages < or = 19 years Acceptable: <120 mg/dL Borderline high: 120-144 mg/dL High: >145 mg/dL Ages > or = 20 years When triglycerides are >200 mg/dL, Non-HDL cholesterol is a secondary target of therapy with treatment goals that are 30 mg/dL greater than the LDL cholesterol target. Literature References: 1. Expert Panel on Integrated Guidelines for Cardiovascular Health and Risk Reduction in Children and Adolescents. Pediatrics 2011;128:S213 2. NCEP Expert Panel. Circulation 2004;110:227 Current Interpretive Data was last revised on 2018. 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 Based on machine cross-calibration and precision studies the least significant changes of this densitometer is 0.024 g/cm2 at the spine, 0.020 g/cm2 at the total proximal femur, and 0.014g/cm2 at the forearm. HISTORY: This is a 68 y.o. postmenopausal female with a history of low bone mass. She reports that she has never smoked. She has never been exposed to tobacco smoke. She has never used smokeless tobacco. Currently on treatment with calcium, vitamin D, and diuretics and current complaint of back pain, neck pain, and leg pain. INDICATIONS: Menopause status and history of low bone mass. FINDINGS: BONE MINERAL DENSITY OF THE LUMBAR SPINE Bone Mineral Density (BMD) of the lumbar spine was measured from L1-L4 and the average density was calculated to be 0.986 gm/cm2. This corresponds to a T-score (standard deviations from the mean of young adults) of -0.6. When compared to the previous study of 08/19/2022 there has been no significant changes in bone density. BONE MINERAL DENSITY OF THE PROXIMAL FEMUR Bone Mineral Density (BMD) of the left hip total was found to be 0.920 gm/cm2. This corresponds to a T-score standard deviations from the mean of young adults of -0.2. Femoral neck is 0.765 gm/cm2 with a T-score (standard deviations from the mean of young adults) of -0.8. When compared to the previous study of 08/19/2022 there has been no significant changes in bone density. SUMMARY: Bone mineral density is near the young adult normal mean with no increased risk for fracture. There has been no significant changes in bone density since previous measurement. The lumbar spine Trabecular Bone Score TBS was not obtained due to BMI being out of range. ADDITIONAL COMMENTS: Postmenopausal Women and Men Over 50: Diagnostic criteria: Osteoporosis: BMD at or below -2.5 T-score; Osteopenia (low bone mass): BMD between -1.0 and -2.5 T-score. If the patient has a history of a fragility fracture, a fracture that occurred with trauma equivalent to a fall from a standing position or less, then the diagnosis is osteoporosis regardless of bone density. The history and data sections of the bone mineral density scan were prepared by Shanon Morin (R)CBDT) who is accredited by the International Society of Clinical Densitometry. The overall patient assessment and scan interpretation were performed by Real Castillo M.D. who is certified by the International Society of Clinical Densitometry. [id number] Tabitha Castillo MD [facility] DXA PROCEDURES Final Resu lt * Screening Mammogram Bilateral W Steve (05/21/2023) Anatomical Region Laterality Modality Breast Bilateral Mammography Jackson Thorpe MD [facility] MAMMO PROCEDURES Final Result * Stool DNA - Cologuard (04/06/2023 12:03 PM CDT) Stool DNA - Cologuard Negative Negative [employer] (CLIA #:[id number]) Comment: NEGATIVE TEST RESULT. A negative Cologuard result indicates a low likelihood that a colorectal cancer (CRC) or advanced adenoma (adenomatous polyps with more advanced pre-malignant features) is present. The chance that a person with a negative Cologuard test has a colorectal cancer is less than 1 in 1500 (negative predictive value >99.9%) or has an advanced adenoma is less than 5.3% (negative predictive value 94.7%). These data are based on a prospective cross-sectional study of 10,000 individuals at average risk for colorectal cancer who were screened with both Cologuard and colonoscopy. (Nelsy Quintanilla et al, N Engl J Med 2014;370(14):0998-6390) The normal value (reference range) for this assay is negative. COLOGUARD RE-SCREENING RECOMMENDATION: Periodic colorectal cancer screening is an important part of preventive healthcare for asymptomatic individuals at average risk for colorectal cancer. Following a negative Cologuard result, the [place] Cancer Society and U.S. Multi-Society Task Force screening guidelines recommend a Cologuard re-screening interval of 3 years. References: [place] Cancer Society Guideline for Colorectal Cancer Screening: https://www.cancer.org/cancer/beixn-kgmfdx-avmzia/wvwduuwme-nbgwsmgbf-uopbqqi/ac s-rec ommendations.html.; Nam DK, Keith BUTLER, Dominitz JK, Colorectal Cancer Screening: Recommendations for Physicians and Patients from the U.S. Multi-Society Task Force on Colorectal Cancer Screening , Am J Gastroenterology 2017; 112:9062-9961. TEST DESCRIPTION: Composite algorithmic analysis of stool DNA-biomarkers with hemoglobin immunoassay. Quantitative values of individual biomarkers are not reportable and are not associated with individual biomarker result reference ranges. Cologuard is intended for colorectal cancer screening of adults of either sex, 45 years or older, who are at average-risk for colorectal cancer (CRC). Cologuard has been approved for use by the U.S. FDA. The performance of Cologuard was established in a cross sectional study of average-risk adults aged 50-84. Cologuard performance in patients ages 45 to 49 years was estimated by sub-group analysis of near-age groups. Colonoscopies performed for a positive result may find as the most clinically significant lesion: colorectal cancer [4.0%], advanced adenoma (including sessile serrated polyps greater than or equal to 1cm diameter) [20%] or non- advanced adenoma [31%]; or no colorectal neoplasia [45%]. These estimates are derived from a prospective cross-sectional screening study of 10,000 individuals at average risk for colorectal cancer who were screened with both Cologuard and colonoscopy. (Nelsy Tello. et al, N Engl J Med 2014;370(14):2942-0636.) Cologuard may produce a false negative or false positive result (no colorectal cancer or precancerous polyp present at colonoscopy follow up). A negative Cologuard test result does not guarantee the absence of CRC or advanced adenoma (pre-cancer). The current Cologuard screening interval is every 3 years. ([place] Cancer Society and U.S. Multi-Society Task Force). Cologuard performance data in a 10,000 patient pivotal study using colonoscopy as the reference method can be accessed at the following location: [email or web address]/results. Additional description of the Cologuard test process, warnings and precautions can be found at [email or web address].[email or web address]. Stool 04/06/2023 12:0 3 PM CDT 04/07/2023 6:13 PM CDT Jackson Thorpe MD LAB BODY FLUIDS AND STOOLS ORDERABLES Final Result [employer] [facility] (CLIA #:[id number]) 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
--- OUTSIDE RECORDS SUMMARY | 2024-11-06 10:18 | XMS_ITS | Clinical Summary ---
Author Organization [facility] [address] Address [address] [place] [address] Care Team Providers Care Electronic Prepress Technician Name Role Phone Ron Temple MD Primary Care Provider [phone] Allergies Active Allergy Reactions Criticality Noted Date Comments Adhesive Tape-Silicones Rash Medium Empagliflozin Other (See comments) Low 03/16/2024 Patient states it felt like she had spiders crawling up her legs. Penicillins Hives Medium Goupyqd-Pls-Faa Reductase Inhibitors Muscle pain Medium 01/22/2017 Medications [...] mg SL tabletIndicatio ns:Coronary artery disease involving [place] coronary artery of [place] heart without angina pectoris Place 1 tablet [...] Assessment & Plan (09/14/2024 9:39 AM CDT): [facility] Arthralgia of both hands 08/03/2024 Assessment & Plan (08/03/2024 4:29 PM STEEL DIE PRINTER): RA ordered. Will monitor. Differentials include RA, side-effect of Ozempic, or arthritis. Gastroesophageal reflux disease without esophagi tis 08/03/2024 Assessment & Plan (08/03/2024 4:32 PM STEEL DIE PRINTER): Started taking Omeprazole with relief. Stable and [...] response. Assessment & Plan (08/03/2024 4:28 PM STEEL DIE PRINTER): Stable and well controlled. Will continue on [...] respnose. Assessment & Plan (08/03/2024 4:30 PM STEEL DIE PRINTER): Controlled with Gabapentin. Will continue medication and [...] her daughter, who I surmise is a termite control technician, and at times was insulting to [...] 01/02/2022 Assessment & Plan (08/03/2024 4:28 PM STEEL DIE PRINTER): Encouraged heart healthy diet and lifestyle. Advised 150 min/week of aerobic exercise. Assessment & Plan (05/05/2023 1:10 PM STEEL DIE PRINTER): BMI Follow-up includes: nutrition counseling and education provided. Murmur 09/02/2020 Mixed diabetic hyperlipidemi a associated with type 2 diabetes mellitus ([facility]) 02/27/2020 Assessment & Plan (09/14/2024 9:37 AM CDT): Will cotninue to follow response. Reivwed glycmeic controla dn target response. Assessment & Plan (08/03/2024 4:28 PM STEEL DIE PRINTER): Lipid panel ordered. Will continue to monitor. Cannot tolerate statins. Statin myopathy 05/17/2018 Hypertension associated with diabetes 12/01/2017 Assessment & Plan (09/14/2024 9:39 AM CDT): Continues on lisionpril/hctz and metorppolol XL. Will follow respnose. Assessment & Plan (08/03/2024 4:27 PM STEEL DIE PRINTER): Blood pressure stable and well controlled. Will [...] intolerance 04/27/2017 Coronary artery disease invo lving [place] coronary artery of [place] heart without angina pectoris 01/22/2017 Assessment & Plan (09/14/2024 9:38 AM CDT): Secondary prevneiton. WIll continue to folow repsonse. Assessment & Plan (08/03/2024 4:33 PM STEEL DIE PRINTER): Stable and continues to follow with cardiology. Nitroglycerin, Metoprolol, Lisinopril-HCTZ, and ASA. Will continue to monitor. Resolved Problems Problem Noted Date Diagnosed Date Resolved Date Dyslipidemia 12/01/2017 01/02/2022 Encounters Date Type Department Care Team Description 10/12/2024 Orders Only [facility] [address] [phone] Ron Temple MD 10/12/2024 Telephone [facility] [address] [phone] Ron Temple MD Symptom Based Call 10/12/2024 Telephone [facility] [address] [phone] Ron Temple MD Medical Question/Miscellaneous 10/12/2024 Telephone [facility] [address] [phone] Ron Temple MD Recommendation Request 09/20/2024 Orders Only [facility] [address] [phone] Ron Temple MD 09/14/2024 Telephone [facility] [address] [phone] Ron Temple MD Prior Auth (ANTONI) 09/13/2024 3:00 PM CDT Office Visit [facility] [address] [phone] Ron Temple MD Encounter for screening mammogram for malignant neoplasm of breast (Primary Dx); Mixed diabetic hyperlipidemia associated with type 2 diabetes mellitus (CMS/HCC) (HCC); S/P coronary artery stent placement; Trigeminal neuralgia syndrome; Coronary artery disease involving [place] coronary artery of [place] heart without angina pectoris; Controlled type 2 diabetes mellitus without complication, without long-term current use of insulin (HCC); Morbid obesity with BMI of 40.0-44.9, adult (HCC); BMI 40.0-44.9, adult (HCC); Statin intolerance; Hypertension associated with diabetes (HCC) 09/13/2024 Nurse Triage [facility] [address] [phone] Ron Temple MD 08/30/2024 Telephone [facility] [address] [phone] Ron Temple MD Medication Request 08/28/2024 11:45 AM CDT Lab [address] [phone] 08/15/2024 Telephone [facility] [address] [phone] Ron Temple MD Referral Request 08/08/2024 Results Follow-Up [facility] [address] [phone] Cathryn Velasquez, SHAWN Rheumatoid factor, Albumin Creatinine Ratio, Urine, CBC with auto differential, Additional followed-up results: 5 from Last 3 Months Immunizations Immunization Administration Dates Next Due Influenza, Quadrivalent, Spl it, Preservative Free, Intramuscular 03/25/2023,03/26/2022,03/20/2021 Influenza, Trivalent, High D ose, Split, Preservative Free, Intramuscular 03/16/2024 Pfizer SARS-CoV-2 Monovalent Vaccination (12+ Yrs) PURPLE 08/08/2020,07/11/2020 Pfizer Sars-Cov-2 Bivalent V accination (12+ YRS) 02/26/2022 Pneumococcal Conjugate Pcv20 03/31/2023 Surgical History Surgery Date Site/Laterality Comments TOTAL ABDOMINAL HYSTERECTOMY Hysterectomy, total SECTION 1979, 1982, 1987 CARDIAC STENT PLACEMENT ANGIOPLASTY 2016 CORONARY ARTERY BYPASS GRAFT Medical History Medical History Date Comments Diabetes mellitus (HCC) Diabetes mellitus Hx Other Medical sectio n (3) Hypertension Hypertension Statin intolerance 04/27/2017 Preeclampsia Arthritis Heart disease Shingles 12/15/2023 Trigeminal neuralgia 2022 Family History Medical History Relation Name Comments Arthritis Father Srikanth Morales Heart attack Father Srikanth Morales Heart disease Father Srikanth Morales Hypertension Father Srikanth Morales Other Father Srikanth Morales Alive and we ll; Stroke Father Srikanth Morales Vision loss Father Srikanth Morales Arthritis Maternal Grandfather Diabetes Maternal Grandmother Diabetes Mother Caron Carmen Hypertension Mother Caron Carmen Kidney disease Mother Caron Carmen Kidney failure Mother Caron Carmen Renal failure ; Cause of : Renal failure Osteoporosis Mother Caronchinedu Qureshike Heart disease Paternal Grandfather Hyperlipidemia Paternal Grandfather Stroke Paternal Grandfather Vision loss Paternal Grandfather Hypertension Sister 1 Hypertension Sister 2 Other Sister 2 Alive and well; Hip fracture Neg Hx Relation Name Status Comments Brother Father Srikanth Morales Maternal Grandfather Maternal Grandmother Mother Caron Morales (Age 79) Paternal Grandfather Sister 1 Alive Sister 2 Alive Social History Tobacco Use Types Packs/Day Years [...] on file Legal Sex Female 2:19 AM STEEL DIE PRINTER Gender Identity Female 02/14/2023 4:19 PM CDT Sexual Orientation Not on file Obstetrics History Last Filed Vital Signs Vital Sign Reading [...] 09/13/2024 2:55 PM CDT Plan of Treatment Health Maintenance Due Date Last Done Comments DTaP/Tdap/Td Vaccine (1 - Tdap) 1966 Zoster Vaccine (1 of 2) 11/16/2003 Well Visit 65+ 2018 Covid-19 Vaccine (6 - 2023-2 5 season) 2024 02/26/2022, 12/13/2021, 01/22/2021, Additional history exists Foot Exam 03/31/2024 03/31/2023, 03/31/2023 Breast Cancer Screening-Mammogram 05/21/2024 023 Hemoglobin A1C 02/01/2025 08/04/2024, 01/07, 10/08/2023, Additional history exists Depression Screening 08/03/2025 08/03/2024, 02/04/2024, 10/04/2023, Additional history exists Fall Risk Assessment 08/03/2025 08/03/2024, 03/16/2024, 10/04/2023, Additional history exists Albumin Creatinine Ratio, Urine 08/04/2025 08/04/2024, 10/08/2023, 04/06/2023 Lipid Panel 08/04/2025 08/04/2024, 05/0 08/2023, 03/15/2023, Additional history exists eGFR 08/04/2025 08/04/2024, 01/07, 10/08/2023, Additional history exists Dilated Eye Exam 09/15/2025 09/15/2024, 09/10/2023 Osteoporosis Screening-Bone Density Scan 02/17/2026 02/18/2024, 08/19/2022, 08/06/2021 Colon Cancer Screening-DNA Stool 04/06/2026 04/06/20 23 Pneumococcal vaccine 65+ Completed 03/31/2023 Colon Cancer Screening-FIT Discontinued 04/06/2023 Influenza Vaccine Completed 03/16/2024, , 03/25/2023, Additional history exists Hepatitis B Screening Completed 08/28/2024 Hepatitis C Screening Completed 08/28/2024, 023 Procedures Procedure Name Priority Date/Time Associated Diagnosis [...] PM CDT EGFR Routine 08/04/2024 10:13 AM STEEL DIE PRINTER Controlled type 2 diabetes mellitus without complication, without long-term current use of insulin (HCC) HEMOGLOBIN A1C Routine 08/04/2024 10:13 AM STEEL DIE PRINTER Controlled type 2 diabetes mellitus without complication, without long-term current use of insulin (HCC) LIPID PANEL Routine 08/04/2024 10:13 AM STEEL DIE PRINTER Mixed diabetic hyperlipidemia associated with type 2 diabetes mellitus (CMS/HCC) (HCC) ALBUMIN CREATININE RATIO, URINE Routine 08/04/2024 10:13 AM STEEL DIE PRINTER Controlled type 2 diabetes mellitus without complication, [...] Diabetic Eye Exam (09/15/2024 11:17 AM CDT) Buffy Provider HEALTH MAINTENANCE Final Result * G6PD [...] last revised on 2019. Testing performed by: [facility], [address] [facility], [place]., [address] Blood 08/28/2024 2:52 PM CDT 08/28/2024 7:08 PM CDT us Zoraida Alvarez MD LAB BLOOD ORDERABLES Final Resul t [facility] [address] Department [place] [address] * Hepatitis C antibody Blood (08/28/2024 2:52 [...] ORDER NEGIN Final Result Performing Organization Address [facility] Co de Phone Number [facility] [address] [place] [address] * Hepatitis B Surface Antigen Blood (08/28/2024 2:52 PM CDT) HepBsAg Nonreactive Nonreactive Blood 08/28/2024 2:52 PM CDT 08/28/2024 2:52 PM CDT us Zoraida Alvarez MD LAB MICROBIOLOGY - GENERAL ORDER NEGIN Final Result Performing Organization Address [facility] Co de Phone Number [facility] [address] [place] [address] * Sjogren's syndrome B ab (08/28/2024 2:52 PM CDT) Pathologist [facility] Anti-KOBY, SS-B <0.2 <=0.9 Ab Index Comment: Interpretive Data Negative: < 1.0 Ab Index Positive: > or = 1.0 Ab Index Current interpretive data was last revised on 2016. Testing performed by: [facility], [address] [facility] [place]., [address] Blood 08/28/2024 2:52 PM CDT 08/28/2024 7:07 PM CDT us Zoraida Alvarez MD LAB BLOOD ORDERABLES Final Resul t Performing Organization Address [facility] Co de Phone Number [facility] [address] [place] [address] * Sjogren's syndrome A ab (08/28/2024 2:52 PM CDT) Anti-KOBY, SS-A <0.2 <=0.9 Ab Index Comment: Interpretive Data Negative: < 1.0 Ab Index Positive: > or = 1.0 Ab Index Current interpretive data was last revised on 2016. Testing performed by: [facility], [address] [place] [address]., [address] Blood 08/28/2024 2:52 PM CDT 08/28/2024 7:07 PM CDT us Zoraida Alvarez MD LAB BLOOD ORDERABLES Final Resul t Performing Organization Address City/[facility]/ZIP Co de Phone Number [facility] [address] [place] [address] * Erythrocyte sedimentation rate (08/28/2024 2:52 PM CDT) Pathologist [facility] Erythrocyte sedimentation rate 25 1 - 30 mm/hr Blood 08/28/2024 2:52 PM CDT 08/28/2024 2:52 PM CDT us Zoraida Alvarez MD LAB BLOOD ORDERABLES Final Resul t Performing Organization Address [facility] Co de Phone Number [facility] [address] [place] [address] * Cyclic citrul peptide antibody, IgG (08/28/2024 2:51 PM CDT) Pathologist [facility] CCP Ab 2.2 <=2.9 units/mL Comment: Interpretive data Negative: <3 units/mL Positive: > or equal to 3 units/mL Current interpretive data was last revised on 2016. Testing performed by: [facility], [address] [place] [address]., [address] Blood 08/28/2024 2:51 PM CDT 08/28/2024 7:07 PM CDT us Zoraida Alvarez MD LAB BLOOD ORDERABLES Final Resul t Performing Organization Address [facility] Co de Phone Number [facility] [address] [facility] [place], [place] [id number] * CRP (acute phase) (08/28/2024 2:51 PM CDT) Pathologist [facility] CRP 5.0 <=10.0 mg/L Blood 08/28/2024 2:51 PM CDT 08/28/2024 2:51 PM CDT us Zoraida Alvarez MD LAB BLOOD ORDERABLES Final Resul t Performing Organization Address [facility] de Phone Number [facility] [address] Department [place], [place] [id number] * Creatine kinase (CK), total (08/28/2024 2:51 PM CDT) Pathologist [facility] CK 109 30 - 200 Units/L Blood 08/28/2024 2:51 PM CDT 08/28/2024 2:51 PM CDT us Zoraida Alvarez MD LAB BLOOD ORDERABLES Final Resul t Performing Organization Address [facility] de Phone Number [facility] [address] Department [place], [place] [id number] * ARLETTE screen w/rflx KOBY+dsDNA (08/28/2024 2:50 PM CDT) ARLETTE Negative Comment: Interpretive Data Normal range [...] last revised on 2020. Testing performed by: [facility], [address] [place]., [address] Blood 08/28/2024 2:50 PM CDT 08/28/2024 7:04 PM CDT us Zoraida Alvarez MD LAB BLOOD ORDERABLES Final Resul t [facility] [address] Department [place] [address] * eGFR (08/04/2024 10:13 AM STEEL DIE PRINTER) eGFR 61 >=60 mL/min/1. 73 m2 Comment: [...] was last reviewed 2021. Testing performed by: [facility], [address] [place] [address]., [address] Blood 08/04/2024 10:1 3 AM STEEL DIE PRINTER 08/04/2024 12:59 PM STEEL DIE PRINTER us Cathryn Velasquez NP LAB BLOOD ORDERABLES Final Re sult [facility] ([place]) [address] [facility] Department [place] [address] * Albumin Creatinine Ratio, Urine (08/04/2024 10:13 AM STEEL DIE PRINTER) Albumin Ur 22.1 mg/L Comment: Interpretive Data No reference range established. Current interpretive data was last revised 2018. Testing performed by: [facility], [address] [place] [address]., [address] Creatinine Ur 126.3 mg/dL [facility] ([place]) Comment: Interpretive Data No reference range established. Current interpretive data was last revised 2018. Testing performed by: [facility], [address] [place] [address]., [address] Albumin Creatinine Ratio, Ur 17 1 - 29 mg/g [facility] ([place]) Comment:Testing performed by : [address] [address] Urine 08/04/2024 10:1 3 AM STEEL DIE PRINTER 08/04/2024 12:39 PM STEEL DIE PRINTER Cathryn Velasquez PULLER OVER LAB URINE ORDERABLES Final Re sult G[facility]EROSA M [facility] ([place]) [address] [facility] Department of Laboratories [place] [id number] * (ABNORMAL) Hemoglobin A1c (08/04/2024 10:13 AM STEEL DIE PRINTER) Hgb A1C 6.2(H) 4.0 - 5.6 % Comment:Testing performed by : [address] [address] Estimated Average Glucose 131 mg/dL [facility] ([place]) Comment: The ADA recommends reporting an estimated Average Glucose (eAG) with all Hemoglobin A1c results using the equation derived from a study of 507 normal and diabetic adults. Minority populations were underrepresented and children were not included. (Diabetes Care 31:7239-0759, 2008). The eAG is not equivalent to a fasting glucose. Testing performed by: [address] [address] Blood 08/04/2024 10:1 3 AM STEEL DIE PRINTER 08/04/2024 12:39 PM STEEL DIE PRINTER us Cathryn Velasquez PULLER OVER LAB BLOOD ORDERABLES Final Re sult [facility] ([place]) [address] [facility] Department [place] [address] * Lipid panel (08/04/2024 10:13 AM STEEL DIE PRINTER) Cholesterol 122 30 - 199 mg/dL Comment: [...] last revised on 2018. Testing performed by: [address] [address] Triglycerides 46 <=149 mg/dL [facility] ([place]) Comment: Interpretive Data Ages < or [...] last revised on 2018. Testing performed by: [facility], [address] [place] [address]., [address] HDL 63 >=40 mg/dL [facility] AM H ([place]) Comment: Interpretive Data Ages < or [...] last revised on 2018. Testing performed by: [address] [address] LDL, calculated 48 <=129 mg/dL [facility] ([place]) Comment: Interpretive Data Ages < or = 19 years Acceptable: <110 mg/dL Borderline high: 110-129 mg/dL High: >or= 130 mg/dL Ages > or = 20 years Optimal: <100 mg/dL Near optimal: 100-129 mg/dL Borderline high: 130-159 mg/dL High: >160 mg/dL Calculated using the Mejia LDL-C estimating equation. This equation was implemented on 2024. Prior to this date LDL-C was estimated using the Friedewald equation. Literature References: 1. Expert Panel on Integrated Guidelines for Cardiovascular Health and Risk Reduction in Children and Adolescents. Pediatrics 2011;128:S213 2. NCEP Expert Panel. Circulation 2004;110:227 3. Mejia Shaffer et al. ALEX Cardiol. 2020 October 05;5(5):540-548. doi: 10.1001/jamacardio.2020.0013 Current Interpretive Data was last revised on 2024. Testing performed by: [address] [address] Non-HDL Cholesterol 59 mg/dL [facility] ([place]) [...] last revised on 2018. Testing performed by: [address] [address] Chol/HDL ratio 2 JOSUE ROTHMAN ([place]) Comment:Testing performed by : [facility], [address] [facility], [place]., [address] Blood 08/04/2024 10:1 3 AM STEEL DIE PRINTER 08/04/2024 12:39 PM STEEL DIE PRINTER us Cathryn Velasquez NP LAB BLOOD ORDERABLES Final Re sult [facility] ([place]) [address] [facility] Department [place] [address] * Dexa TBS Axial Skeleton Bone Density 1 or more sites (02/18/2024 11:06 AM CDT) Anatomical Region Laterality Modality Wrist, Body N/A Radiographic Danika ging Narrative 02/19/2024 12:28 PM CDT Patient Name: Lula Avila Date of : 1955 Date of scan: 02/18/2024 Bone mineral density was performed on a HoloJewel Toned Discovery Densitometer. Based on machine cross-calibration and [...] mineral density scan were prepared by Shanon Swanson (R)(CBDT) who is accredited by the International Society of Clinical Densitometry. The overall patient assessment and scan interpretation were performed by Real Castillo M.D. who is certified by the International Society of Clinical Densitometry. [id number] Tabitha Castillo MD [facility] DXA PROCEDURES Final Resu lt * Screening Mammogram Bilateral W Steve (05/21/2023) Anatomical Region Laterality Modality Breast Bilateral Mammography Jackson Thorpe MD [facility] MAMMO PROCEDURES Final Result * Stool DNA - Cologuard (04/06/2023 12:03 PM CDT) Stool DNA - Cologuard Negative Negative [employer] (CLIA #:[id number]) Comment: NEGATIVE TEST RESULT. A negative Cologuard [...] screened with both Cologuard and colonoscopy. (Nelsy Mayes al, N Engl J Med 2014;370(14):7498-2966) The normal value (reference range) for this assay is negative. COLOGUARD RE-SCREENING RECOMMENDATION: Periodic colorectal cancer screening is an important part of preventive healthcare for asymptomatic individuals at average risk for colorectal cancer. Following a negative Cologuard result, the [place] Cancer Society and U.S. Multi-Society Task Force screening guidelines recommend a Cologuard re-screening interval of 3 years. References: [place] [employer] Society Guideline for Colorectal Cancer Screening: https://www.cancer.org/cancer/elusx-srnjvz-izsjkr/vowqrhexz-wpemxoowp-geeawuu/ac s-rec ommendations.html.; Nam MAYO, Keith BUTLER, Dm VincentK, Colorectal Cancer Screening: Recommendations for Physicians and Patients from the U.S. Multi-Society Task Force on Colorectal Cancer Screening , Am J Gastroenterology 2017; 112:6863-7998. TEST DESCRIPTION: Composite algorithmic analysis of stool [...] Quintanilla et al, N Engl J Med 2014;370(14):2715-3586.) Cologuard may produce a false negative or false positive result (no colorectal cancer or precancerous polyp present at colonoscopy follow up). A negative Cologuard test result does not guarantee the absence of CRC or advanced adenoma (pre-cancer). The current Cologuard screening interval is every 3 years. ([employer] Cancer Society and U.S. Multi-Society Task Force). Cologuard performance data in a 10,000 patient pivotal study using colonoscopy as the reference method can be accessed at the following location: www.[employer]/results. Additional description of the Cologuard test process, warnings and precautions can be found at www.cologuard.[employer]. Stool 04/06/2023 12:0 3 PM CDT 04/07/2023 6:13 PM CDT Jackson Thorpe MD LAB BODY FLUIDS AND STOOLS ORDERABLES Final Result [facility] (CLIA #:[id number]) [address] [place] [address] from Last 3 Months or Most Recently Relevant to Health Maintenance Insurance [employer] [facility] [id number] [facility] [id number] Member Subscriber Plan / Payer (Ef fective 2020-Present) Name:Lula Avila Member ID:[id number] Relation to Subscriber:Self Name:Lula Avila Subscriber ID:[id number] Payer ID:[id number] Type:FoneshowO/PPO Address: [facility] [address] [place] [id number] Care Teams Electronic Prepress Technician Relationship Specialty Start Date End Date Ron Temple MD [address] [place] [address] PCP - General Family Medicine 02/04/24
--- OUTSIDE RECORDS SUMMARY | 2024-11-06 10:18 | XMS_ITS | Encounter Summary ---
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
== END 2024-11-06 09:42 | disposition home or self-care (01) ==
PROVIDERS: PCP Family Medicine; Visit Provider Family Medicine
DX: Z12.31 Encounter for screening mammogram for malignant neoplasm of breast (principal)
CPT/HCPCS: 77063; 77067